=== PATIENT | female | born 1955 | race Caucasian/White ===

== ENCOUNTER → 2018-05-17 | Outpatient (CLI) | payer OTHER ==
[~2018-05-17] VITALS: Ht 170.2 cm; Wt 86.2 kg
[~2018-05-17] MED LIST: FISH OIL PO; KEFLEX500 MG PO; MULTIVITAMINS PO
--- NOTE | ~2018-05-17 | P ---
Formerly [facility] [place] [address] PROCEDURE REPORT Name: SHERI DE LA O Room #: REG [facility].#: [id number] Admission: 05/17/18 Attend Phys: Ba Smith MD Discharge: Date of : 59 Report #: [id number] THIS REPORT FOR: //name// CC: Dana Smith BRIEF HISTORY: The patient is a 63-year-old woman with history of two prior colon adenomas, who presents for followup colonoscopy. PREOPERATIVE DIAGNOSIS: History of colon polyps. POSTOPERATIVE DIAGNOSES: 1. Diminutive colon polyps x 2. 2. Mild sigmoid diverticulosis coli. MEDICATIONS: Deep sedation with propofol per anesthesia. SPECIMENS: 1. Proximal ascending colon polyp. 2. Polyp at 40 cm. ESTIMATED BLOOD LOSS: 3 mL. PROCEDURE: Colonoscopy to cecum and terminal ileum with biopsy. FINDINGS: Prior to propofol sedation, procedure of colonoscopy discussed with the patient as well as potential risks and its complications. She indicates she understands and desires to proceed. DESCRIPTION OF PROCEDURE: With the patient in the left lateral decubitus position, digital examination was completed, which revealed no abnormalities. Subsequently, the Olympus video colonoscope was introduced through the rectum and advanced under direct vision to the cecum. Done with minimal difficulty. The cecum was identified by the ileocecal valve and the appendiceal orifice. I was able to visualize the distal segment of the terminal ileum, which was inspected and noted to be unremarkable. At that point, the scope was slowly withdrawn and careful circumferential views were obtained. Upon slow withdrawal of the scope, the prep was excellent. The mucosa was within normal limits. Normal vascular pattern, normal light reflex. As we withdrew the scope, a diminutive polyp was seen in the proximal ascending colon and removed with biopsy forceps. Scope was further withdrawn and she had normal-appearing colonic mucosa. No additional abnormalities were noted until the sigmoid colon was reached and at 40 cm, another diminutive polyp was seen and removed with biopsy forceps. Scope was further withdrawn and a few scattered small diverticula were seen. There was no endoscopic evidence of diverticulitis. Scope was withdrawn in the rectum. Upon retroflexion, no abnormalities were [facility] [address] [place] [address] PROCEDURE REPORT Name: SHERI DE LA OZABETH Room #: REG [facility] [place]y.#: [id number] Admission: 05/17/18 Attend Phys: Ba Smith MD Discharge: Date of : 59 Report #: [id number] seen. The scope was withdrawn and the patient tolerated the procedure well. CONDITION OF THE PATIENT UPON DISCHARGE: Following procedure, the patient drowsy, arousable and conversant and will be discharged to home when fully ambulatory. INSTRUCTIONS TO THE PATIENT AND FAMILY AT THE TIME OF DISCHARGE: Two small polyps identified and removed as described above. We will follow up on the pathology. If one or both are adenomas, she should return in 5 years; if neither one is an adenoma, then 10 years would be indicated. Last colonoscopy was 5 years ago. Withdrawal time from the cecum was 15 minutes and 23 seconds. By: [id number] Ba Smith MD /nt
--- NOTE | ~2018-05-17 | PATH ---
[facility] [place] [address] PATHOLOGY RPT PROCEDURE Name: JAYLYNSHERIARTURO CHAVIS Room #: REG [facility] Robles#: [id number] Admission: 05/17/18 Date of : 59 Discharge: Report #: [id number] Path Case #: [id number] [facility] Accession Number: [id number] . 01 Material submitted: . PART A: PROXIMAL ASCENDING COLON POLYP PART B: POLYP AT 40CM OF COLON . 01 Clinical history: . Pre-OP DX: Hx colon polyps Post-OP DX: Colon polyps, diverticulosis . 02 Diagnosis: A. Polyp, proximal ascending colon polyp, endoscopic biopsy: - Hyperplastic polyp. - Negative for dysplasia. . B. Polyp, at 40 cm of colon, endoscopic biopsy: - Tubular adenoma. - Negative for high grade dysplasia. . (IUV:mml; 05/18/18) [facility]/05/18/2018 . 02 Electronically signed: . Mary Conner MD, Pathologist NPI- [id number] . 01 Gross description: . A. Received in formalin labeled "Sheri Rubio, proximal ascending colon polyp," are 6 segments of sterling soft tissue measuring 1.3 x 0.8 x 0.2 cm in aggregate dimensions and ranging from 0.3 to 0.4 cm in maximum dimension. The specimen is submitted entirely in cassette A1. . B. Received in formalin labeled "Sheri Rubio, polyp at 40 cm of colon," are 2 segments of sterling soft tissue measuring 0.7 x 0.3 x 0.3 cm in aggregate dimensions and ranging from 0.2 to 0.5 cm in maximum dimension. The specimen is submitted entirely in cassette B1. (TSD; 05/17/2018) TOB/TOB . 02 Pathologist provided ICD-10: K63.5, D12.6 . 02 CPT . 513883, 429186 Specimen Comment: A courtesy [place] [address] PATHOLOGY RPT PROCEDURE Name: SHERI RUBIO Room #: REG [facility].#: [id number] Admission: 05/17/18 Date of : 59 Discharge: Report #: [id number] Path Case #: [id number] Specimen Comment: [phone], . Specimen Comment: Report sent to / DR CHRISTENSEN Performed at: 01 [facility] [address], [place], [place] [id number] MD Juan Wahl MD Phone: [phone] Performed at: [address] [id number] MD Mary Conner MD Phone: [phone]
== END | disposition home or self-care (01) ==
LOC: GI 06:37
DX: Z12.11 Encounter for screening for malignant neoplasm of colon (principal); Z86.010 Personal history of colon polyps; K63.5 Polyp of colon; K57.30 Diverticulosis of large intestine without perforation or abscess without bleeding; Z98.890 Other specified postprocedural states; Z79.899 Other long term (current) drug therapy; Z88.8 Allergy status to other drugs, medicaments and biological substances
CPT/HCPCS: 62110; 62900